=== PATIENT | female | born 1980 | race Caucasian/White ===

== ENCOUNTER → 2018-02-10 13:05 | Outpatient (REF) | payer MEDICAID, SELFPAY ==
[2018-02-10 20:29] LABS: Abs Immature Grans 0.01 k/cumm (0.0-0.09); Absolute Basophil Count 0.01 k/cumm (0.0-0.2); Absolute Eosinophil Count 0.02 k/cumm (0.0-0.7); Absolute Monocyte Count 0.48 k/cumm (0.11-0.7); Absolute Neutrophil Count 3.99 k/cumm (1.2-6.7); Basophils % 0.1; Eosinophils % 0.3; HCT 39.6 % (36.0-46.0); HGB 13.7 g/dL (12.0-15.5); Immature Grans % 0.1; Lymphocytes % 32.8; Mean Corp. HGB Concentration 34.6 g/dL (32.0-36.0); Mean Corpuscular Hemoglobin 31.1 pg (27.0-33.0); Mean Platelet Volume 10.9 fL (8.0-11.0); Monocytes % 7.2; Neutrophils % 59.5; Platelet Count 202 x1000/uL (130-400); RBC Distribution Width 11.7 % (11.7-14.6); White Blood Cell Count 6.71 k/cumm (4.4-10.8)
[2018-02-10 20:52] LABS: ALT 21 U/L (12-78); AST 18 U/L (15-37); Alkaline Phosphatase 52 U/L (46-116); Anion Gap 8.4 mmol/L (3-11); BUN 15 mg/dL (7-18); Bilirubin, Total 0.3 mg/dL (0.2-1.0); CO2 25.6 mmol/L (21.0-32.0); CREATININE 0.63 mg/dL (0.55-1.02); Calcium 9.1 mg/dL (8.5-10.1); Chloride 106 mmol/L (98-107); Glucose 90 mg/dL (70-100); Lipase 142 U/L (73-393); Potassium 3.8 mmol/L (3.5-5.1); Sodium 140 mmol/L (136-145); TSH (W/Ref FT4) 0.95 uIU/mL (0.358-3.74); Total Protein 7.1 g/dL (6.4-8.2)
== END ==
LOC: NCHCN 13:05
PROVIDERS: PCP Nurse Practitioner Family; Visit Provider Nurse Practitioner
DX: R00.2 Palpitations (principal); R10.84 Generalized abdominal pain
CPT/HCPCS: 80053; 83690; 83735; 84443; 85025

== ENCOUNTER → 2018-02-13 10:28 | Outpatient (CLI) | payer MEDICAID, SELFPAY ==
--- NOTE | 2018-02-16 09:31 | HOLTER_ITS ---
HOLTER MONITOR DATE OF DICTATION February 16, 2018 INDICATION Palpitations. Baseline sinus rhythm. Average heart rate 83 beats per minute. Minimum heart rate 56 beats per minute. Maximum heart rate 135 beats per minute. Frequent isolated ventricular ectopy accounting for 1.2% of total beats. No nonsustained ventricular tachycardia. Rare PACS. No significant atrial arrhythmias. No significant pauses or bradyarrhythmias. Patient diary events of palpitations predominantly correspond to isolated PVCs and occasionally to sinus rhythm. Overall sinus rhythm with frequent isolated ventricular ectopy with some patient symptoms of palpitations corresponding to PVCs. Sarai Monsivais M.D. VICTOR M/dexter T - 02/16/2018
== END ==
PROVIDERS: PCP Nurse Practitioner Family; Visit Provider Nurse Practitioner
DX: R00.2 Palpitations (principal); I49.3 Ventricular premature depolarization
CPT/HCPCS: 93225

== ENCOUNTER → 2018-02-16 08:04 | Outpatient (CLI) | payer MEDICAID, SELFPAY | PROVIDERS: PCP Nurse Practitioner Family; Visit Provider Nurse Practitioner | DX: R00.2 Palpitations (principal); I49.3 Ventricular premature depolarization | CPT/HCPCS: 93226 ==

== ENCOUNTER 2019-03-07 12:43 | Emergency (ER) | payer MEDICAID, SELFPAY ==
[2019-03-07 12:50] VITALS: BP 130/83; PULSE 90; RESP 20; TEMP 36.8; O2SAT 97
--- NOTE | 2019-03-07 13:06 | ED.GENADUL_ITS ---
Discharge Plan Disposition Patient Disposition: HOME Discharge Details Chief Complaint: Laceration Clinical Impression: Laceration of right upper extremity Primary Care Provider: Stephan Cash ED Provider: Js Turner Home Meds and New Rx's Prescriptions: Continued paroxetine HCl 10 MG tablet 20 mg PO DAILY RF: 0 ascorbic acid (vitamin C) [Vitamin C] 500 MG tablet 3,000 mg PO DAILY RF: 0 vitamin B complex [B-Complex] 1 EACH tablet 3 ea PO DAILY RF: 0 cholecalciferol (vitamin D3) 5,000 UNIT capsule 10,000 unit PO DAILY RF: 0 magnesium amino acid chelate 100 MG tablet 820 mg PO BID RF: 0 Enzyme Digest 1 EACH capsule 1 ea PO DAILY RF: 0 ibuprofen 600 MG tablet 600 mg PO TID PRNQty: 30 RF: 0 Discharge Instructions Instructions: Laceration (ED) Additional Instructions: Please return to the emerge department for suture removal in 8-10 days. Please contact your primary care physician to arrange follow-up. Return to the ER for any worsening or new concerning symptoms. Referrals: Stephan Cash [Primary Care Provider] - Medical Decision Making 39-year-old female here with laceration to her right forearm. Wound was anesthetized with lidocaine, irrigated with copious sterile saline and closed with 2 horizontal mattress sutures without complication. A sterile dressing was applied. Tetanus up-to-date. Usual and customary discharge instructions were provided. HPI General Mode of arrival: ambulatory . Date/Time Provider Initiated Documentation: 03/07/19 13:06 . Limitations to Documentation: no limitations . Information obtained by: patient . HPI Narrative: 39-year-old female presents with chief complaint of laceration. Patient notes she accidentally cut her right forearm on sheet of metal just prior to arrival. Wound was initially bleeding. Bleeding is stopped. No associated numbness or weakness. Related Data Home Medications Medication Instructions Recorded Confirmed paroxetine HCl 20 mg PO DAILY tab-cap 02/02/16 03/07/19 ascorbic acid (vitamin C) [Vitamin 3,000 mg PO DAILY 05/17/16 03/07/19 C] cholecalciferol (vitamin D3) 10,000 unit PO DAILY 05/17/16 03/07/19 magnesium amino acid chelate 820 mg PO BID 05/17/16 03/07/19 vitamin B complex [B-Complex] 3 ea PO DAILY 05/17/16 03/07/19 Enzyme Digest 1 ea PO DAILY 07/19/16 03/07/19 ibuprofen 600 mg PO TID PRN #30 tab 05/25/17 03/07/19 Previous Rx's Medication Instructions Recorded ibuprofen 600 mg PO TID PRN #30 tab 05/25/17 Allergies Allergy/AdvReac Type Severity Reaction Status Date / Time codeine AdvReac Intermediate Nausea/vomi Unverified 03/07/19 12:52 ting morphine AdvReac vomits Unverified 03/07/19 12:52 General Stated Complaint: Laceration GRICEL: 3 Review of Systems Musculoskeletal Musculoskeletal: Reports as per HPI Integumentary/Breasts Skin/Breast: Reports as per HPI Neurologic Neurologic: Reports as per HPI [facility] Surgical History Appendectomy section Dilation and curettage Social History Smoking/Tobacco Use Status: Current every day Alcohol Intake: current Alcohol Intake frequency: holidays/special occasions only Drug use: Never Substance use type: does not use Do you feel safe at home: Yes Do you feel safe in your relationship?: Yes Exam Const General: cooperative and healthy appearing Neuro General: alert, awake and no focal motor deficits (distal RUE) Sensory Exam: no sensory deficits noted Extrem Right upper extremity: elbow/forearm Details: laceration (3cm laceration rt forearm) Course Vital Signs Vital signs: Vital Signs Temperature 36.8 C 03/07/19 12:50 Pulse 90 03/07/19 12:50 Respiratory Rate 03/07/19 12:50 Blood Pressure 130/83 03/07/19 12:50 Pulse Oximetry 97 03/07/19 12:50 Temperature 36.8 C 03/07/19 12:50 Temperature Source Temporal Artery Scan 03/07/19 12:50 Pulse 90 03/07/19 12:50 Respiratory Rate 20 03/07/19 12:50 Respiratory Effort Non-Labored 03/07/19 12:52 Blood Pressure 130/83 03/07/19 12:50 Pulse Oximetry 97 03/07/19 12:50 Oxygen Delivery Method Room Air 03/07/19 12:50 Oxygen Flow Rate 0 03/07/19 12:50 Pain Level 3 03/07/19 12:50 Procedures Laceration Laceration 1: Site: upper extremity Side (If applicable): right Size (cm): 2 Description: linear Depth: simple, single layer Local Anesthetic: Lidocaine 1% and with Epi Amount of anesthesia used (mL): 1 Pre-repair: wound explored, irrigated extensively and deep structures intact Skin layer closed with: nylon Size (cm): 4-0 Number of sutures: 2 Technique: horizontal mattress
[2019-03-07] MEDS: Lidocaine/Epinephri/Tetracaine Topical Gel 3 ML TP (13:14)
[2019-03-07 13:44] VITALS: BP 130/83; PULSE 90; RESP 20; TEMP 36.8; O2SAT 97
== END 2019-03-07 13:46 | disposition home or self-care (01) ==
PROVIDERS: Emergency Provider Student in an Organized Health Care Education/Training Program; PCP Internal Medicine
DX: S61.511A Laceration without foreign body of right wrist, initial encounter (principal); W26.8XXA Contact with other sharp object(s), not elsewhere classified, initial encounter; Y99.0 Civilian activity done for income or pay
CPT/HCPCS: 12001

== ENCOUNTER → 2021-11-25 01:17 | Outpatient (CLI) | payer MEDICAID, SELFPAY | PROVIDERS: PCP Internal Medicine; Visit Provider Physician Assistant Medical ==

== ENCOUNTER 2022-07-05 16:09 | Outpatient (CLI) | payer MEDICAID, SELFPAY ==
--- NOTE | 2022-07-05 | DI.RAD_ITS ---
Exam(s) XR FOOT LT COMPLETE EXAM: XR FOOT LT COMPLETE CLINICAL HISTORY: LT FOOT PAIN, M79.672. TECHNIQUE: 2D digital imaging was performed of the left foot. Three images were obtained. AP, obli que and lateral views were obtained. COMPARISON: CR LEFT ANKLE COMPLETE from 05/25/2017 FINDINGS: BONES: No acute fracture is present. No bony destructive lesion is seen. There is a small enthesophyt e at the posterior calcaneus. JOINTS: No dislocation present. SOFT TISSUE: Normal. IMPRESSION: No acute abnormality. DATA REPOSITORY: RADIATION DOSE DELIVERED:
== END 2022-07-05 16:29 ==
PROVIDERS: PCP Internal Medicine; Visit Provider Nurse Practitioner Family
DX: M79.672 Pain in left foot (principal)
CPT/HCPCS: 73630

== ENCOUNTER 2024-09-20 15:39 | Outpatient (CLI) | payer MEDICAID, SELFPAY ==
[2024-09-20 14:57] LABS: Abs Immature Grans 0.01 10^3/uL (0.0-0.06); Absolute Basophil Count 0.04 10^3/uL (0.0-0.2); Absolute Monocyte Count 0.45 10^3/uL (0.1-0.8); Absolute Neutrophil Count 3.95 10^3/uL (1.2-6.7); Basophils % 0.6 %; Eosinophils % 1.5 %; HCT 40.3 % (36.0-46.0); HGB 13.5 g/dL (11.2-15.7); Immature Grans % 0.1 %; Lymphocytes % 32.6 %; MCHC 33.5 % (32.0-36.0); MCV 92 fL (80-95); MPV 10.4 fL (8.0-11.0); Monocytes % 6.7 %; Neutrophils % 58.5 %; Platelet Count 212 10^3/uL (130-400); RBC 4.36 10^6/uL (3.93-5.22); RDW 11.6 % (11.7-14.6); RDW-SD 39.2 fL; WBC 6.75 10^3/uL (4.4-10.8)
[2024-09-20 14:59] LABS: ESR 8 mm/hr (0-20)
[2024-09-20 15:13] LABS: ALT 28 U/L (14-59); AST 15 U/L (15-37); Albumin 4.1 g/dL (3.4-5.0); Alkaline Phosphatase 48 U/L (46-116); Anion Gap 11.2 mmol/L (3-11); BUN 12 mg/dL (7-18); Bilirubin, Total 0.2 mg/dL (0.2-1.0); CO2 26.8 mmol/L (21.0-32.0); CREATININE 0.8 mg/dL (0.55-1.02); Calcium 9.8 mg/dL (8.5-10.1); Chloride 106 mmol/L (98-107); Estimated GFR 93.12 (mL/min/1.73m2); Glucose 101 mg/dL (74-106); Potassium 3.9 mmol/L (3.5-5.1); Sodium 144 mmol/L (136-145); Total Protein 7.5 g/dL (6.4-8.2)
[2024-09-20 15:15] LABS: C-Reactive Protein < 0.50 mg/dL (<or=0.5)
[2024-09-20 21:59] LABS: Rheumatoid Factor <8.6 IU/mL (<12.0)
[2024-09-21 12:28] LABS: ANA Interpretation Negative (Negative)
== END 2024-09-20 15:40 | disposition home or self-care (01) ==
LOC: LBO 15:41
PROVIDERS: PCP Internal Medicine; Visit Provider Physician Assistant Medical
DX: M25.50 Pain in unspecified joint (principal)
CPT/HCPCS: 36415; 80053; 85652; 85025; 86038; 86140; 86431

== ENCOUNTER 2024-12-13 10:58 | Emergency (ER) | payer MEDICAID, SELFPAY ==
[2024-12-13 11:03] VITALS: BP 151/100; PULSE 102; RESP 16; TEMP 36.5; O2SAT 98
--- NOTE | 2024-12-13 11:15 | DI.RAD_ITS ---
Exam(s) XR FOOT LT COMPLETE EXAM: XR FOOT LT COMPLETE CLINICAL HISTORY: L lateral foot pain. TECHNIQUE: 2D digital imaging was performed. Three views. COMPARISON: CR XR FOOT LT COMPLETE from 07/05/2022 FINDINGS: BONES: There is a faint lucency in the distal neck of the 5th metatarsal which may represent a nondisplaced fracture. No bony destructive lesion is seen. Enthesophyte at Achilles insertion. JOINTS: No dislocation present. SOFT TISSUE: Lateral soft tissue swelling. IMPRESSION: Question of a nondisplaced fracture of the distal 5th metatarsal. DATA REPOSITORY: RADIATION DOSE DELIVERED:
[2024-12-13] MEDS: Ibuprofen 400 MG TAB PO (11:45)
[2024-12-13] MEDS: Acetaminophen 500 MG TAB 1000 MG PO (11:45)
--- NOTE | 2024-12-13 12:22 | W.ED.GENAD ---
Discharge Plan Disposition Patient Disposition: Home Condition: Stable Discharge Details Clinical Impression: Fracture of fifth metatarsal bone of left foot Primary Care Provider: Stephan Cash ED Provider: Mauricio Sims Home Meds and New Rx's Prescriptions: Continued paroxetine HCl 10 MG tablet 30 mg PO DAILY ibuprofen 600 MG tablet 600 mg PO TID PRNQty: 30 0RF Discharge Instructions Instructions: Foot Fracture ED Additional Instructions: You were seen in the emergency department for your left foot pain, there is a subtle lucency seen at the tip of your fifth metatarsal bone that questions a hairline fracture, we have provided you with a cast shoe, please rest, ice, compress and elevate, partially weight-bear as tolerated with crutches, please use therapeutic dosing of Tylenol (acetamenophen) & Advil (ibuprofen) in an alternating fashion as follows: Take 1000mg of Tylenol every 6 hours without missing doses- that is 4 times per day. [facility] in between the Tylenol dosings, take 400-600mg of Advil also on a 6 hour schedule, that is also 4 times per day. The daily maximum dosing of Tylenol is 4000mg, and the daily maximum dosing of Advil is 2400mg. This is safe to do for weeks. Please note that some common cold medications & prescription pain medications may contain acetamenophen and you need to read OTC drug labels and factor that in to maximum daily dosings. Please follow-up with orthopedics or your primary care for routine x-rays in a couple weeks to ensure routine healing. Referrals: Stephan Cash [Primary Care Provider] Discharge Data Discharge Date/Time-TO BE ENTERED AT DEPARTURE: 12/13/24 12:47 HPI General Date/Time Provider Initiated Documentation: 12/13/24 11:10. HPI Narrative: 44 year-old female presents to ED today by POV/ambulating with a chief complaint of L lateral foot pain, slipped off a step with onset last night. Quality described as heard a pop, having sharp pain, no radiation to numbness, gross deformity, calf pain, skin changes, inability to dorsi/plantarflex. Severity is described as severe with weight-bearing. Palliating factors include OTC analgesics with mild relief. Provoking factors include nothing specific beyond weight-bearing. Patient is R-side dominant. Patient not anticoagulated. Related Data Home Medications ?Medication ?Instructions ?Recorded ?Confirmed paroxetine HCl 10 mg tablet 30 mg PO DAILY 02/02/16 12/13/24 ibuprofen 600 mg tablet 600 mg PO TID PRN #30 tabs 05/25/17 12/13/24 Previous Rx's ?Medication ?Instructions ?Recorded ibuprofen 600 mg tablet 600 mg PO TID PRN #30 tabs 05/25/17 Allergies Allergy/AdvReac Type Severity Reaction Status Date / Time codeine AdvReac Intermediate Nausea/vomi Unverified 12/13/24 11:05 ting morphine AdvReac vomits Unverified 12/13/24 11:05 General Stated Complaint: Orthopedic GRICEL: 4 Exam Narrative Exam Narrative: GENERAL APPEARANCE: Well-nourished, non-toxic, awake and alert, atraumatic, no acute distress. SKIN: Warm, pink, dry, intact, without rashes/lesions/ulcerations. HEAD: Normocephalic, atraumatic, normal hair distribution for gender/age. EYES: Normal conjunctiva, no exudates on lids/lashes. ENT: Nares patent, no circumoral cyanosis, no facial swelling NECK: Supple, trachea midline, painless cervical ROM. LUNGS/CHEST: Non-labored respirations, normal A/P diameter, symmetrical expansion, no chest wall deformity HEART (CV/PV): Regular rate, L dorsalis pedis pulse 2+, no peripheral edema, no JVD. ABDOMEN: Soft, non-distended, no guarding. MSK: Normal ROM, no swelling/deformity to bilateral UEs or LEs, moving all extremities without weakness, no cyanosis, spine midline without tenderness, normal curvature. L FOOT: no crepitus/ecchymosis, no gross swelling/deformity, sensation intact, plantar/dorsiflexion intact. NEURO: Mental Status AAOx4 - alert to person, place, time, events No facial droop, no forehead involvement. Motor: No focal weakness - strength 5/5 in bilateral UEs and LEs, proximal and distal, symmetric. Sensory: sensation intact to light touch globally. Gait antalgic. PSYCH: euthymic, cooperative, pleasant, appropriate speech Course Vital Signs Vital signs: Vital Signs Temperature 36.5 C 12/13/24 11:03 Pulse 102 H 12/13/24 11:03 Respiratory Rate 16 12/13/24 11:03 Blood Pressure 151/100 H 12/13/24 11:03 Pulse Oximetry 98 12/13/24 11:03 Temperature 36.5 C 12/13/24 11:03 Pulse 102 H 12/13/24 11:03 Respiratory Rate 16 12/13/24 11:03 Blood Pressure 151/100 H 12/13/24 11:03 Pulse Oximetry 98 12/13/24 11:03 Oxygen Delivery Method Room Air 12/13/24 11:03 Oxygen Flow Rate 0 12/13/24 11:03 Pain Level 6 12/13/24 11:03 Medical Decision Making This dictation utilizes [id number] dictation software and may contain unedited grammatical errors. 44 year-old female presents to ED today by POV/ambulating with a chief complaint of L lateral foot pain, slipped off a step with onset last night. Quality described as heard a pop, having sharp pain, no radiation to numbness, gross deformity, calf pain, skin changes, inability to dorsi/plantarflex. Severity is described as severe with weight-bearing. Palliating factors include OTC analgesics with mild relief. Provoking factors include nothing specific beyond weight-bearing. Patient is R-side dominant. Patients' medical history: Noncontributory. Family and social history: Noncontributory. Pertinent exam findings / vital signs include tenderness to palpation along the lateral aspect of the foot, neurovascularly intact, able to dorsi/plantarflex, no crepitus, no ecchymosis or gross swelling/deformity. Differential / pathologies of concern include fracture, sprain. Diagnostic studies of: - XR L foot-shows questionable small lucency at the distal fifth metatarsal, treating as fracture. Interventions of: - Cast shoe and patient had their own crutches already. ED Course/Assessment/Plan: 44-year-old female presents after slipping off a step injuring her lateral left foot, pain with weightbearing, no crepitus, no ecchymosis, NV intact, questionable small lucency at the distal fifth metatarsal treating with aj and recommend partial weightbearing, routine x-rays for follow-up, seek Ortho for complications, return for any signs of neurovascular compromise or increasing warmth to touch or signs of infection in the foot. Findings not consistent with neurovascular compromise, unstable fracture. Disposition of fracture of fifth metatarsal bone of left foot. Patient verbalized understanding of the plan and return to ED criteria and engaged in shared decision making. Medical Records Medical records reviewed: Yes I reviewed the patient's medical records. Imaging Data Radiologic Study: Attestation: I personally reviewed and interpreted this imaging study as follows: Imaging: X-Ray Radiologist's impression: EXAM: XR FOOT LT COMPLETE CLINICAL HISTORY: L lateral foot pain. TECHNIQUE: 2D digital imaging was performed. Three views. COMPARISON: CR XR FOOT LT COMPLETE from 07/05/2022 FINDINGS: BONES: There is a faint lucency in the distal neck of the 5th metatarsal which may represent a nondisplaced fracture. No bony destructive lesion is seen. Enthesophyte at Achilles insertion. JOINTS: No dislocation present. SOFT TISSUE: Lateral soft tissue swelling. IMPRESSION: Question of a nondisplaced fracture of the distal 5th metatarsal. PFSH All Active Problems (Updated 12/13/24 @ 12:24 by NORY Barajas) Fracture of fifth metatarsal bone of left foot (Acute) Surgical History section Dilation and curettage Appendectomy Social History Smoking/Tobacco Use Status: Current every day Smoking risk assessment performed?: Yes Alcohol Intake: current Alcohol Intake frequency: holidays/special occasions only Drug use: Never Substance use type: does not use Do you feel safe at home: Yes Do you feel safe in your relationship?: Yes PAWSS Have you Been Recently Intoxicated or Drunk Within the Last 30 days?: No Have you Ever Experienced Previous Episodes of Alcohol Withdrawal?: No Have you ever Experienced Withdrawal Seizures?: No Have you ever Experienced Delirium Tremens(DT)s?: No Have you ever undergone Alcohol Rehabilitation Treatment (i.e, inpt ot outpatient treatment programs)?: No Have you ever Experienced Blackouts?: No Have you ever Combined Alcohol with other Downers within the last 90 days?: No Have you ever Combined Alcohol with any other Substance of Abuse during the last 90 days?: No Positive Blood Alcohol level on Presentation? [PCS.BAL]: No Evidence of Increased Autonomic Activity (i.e. HR>120, tremor, sweating, agitation, nausea)?: No Result: 0
[2024-12-13 12:45] VITALS: BP 106/76; PULSE 67; RESP 18; O2SAT 98
== END 2024-12-13 12:47 | disposition home or self-care (01) ==
LOC: ER 12:27
PROVIDERS: Emergency Provider Physician Assistant; PCP Internal Medicine
DX: S92.352A Displaced fracture of fifth metatarsal bone, left foot, initial encounter for closed fracture (principal); X58.XXXA Exposure to other specified factors, initial encounter
CPT/HCPCS: 99283 ×2; 73630